=== PATIENT | male | born 1935 ===

== ENCOUNTER 2017-11-13 10:41 | Inpatient (IN) | payer MEDICARE ==
--- NOTE | 2017-11-13 11:00 | ED PDOC ---
Arrival/HPI - General Chief Complaint: High Blood Sugar Time Seen by Provider: 11/13/17 10:44 Historian: Patient, EMS - History of Present Illness Narrative History of Present Illness (Text): 11/13/17 10:57 81 year old male, pmh including htn/hld/dm/osteomylitis (Picc line with IV antibiotic routinely)hyperthyroidism/gastritis/anemia, nkda, biba complaining of hyperglycemia and hypotensive? x 1 hour. As per EMS and the [facility], pt. was having breakfast this morning, suddenly have the urge to go to the bathroom and had a bowel movement which he stood up and feeling dizziness and noted to be hypotensive, FS checked on the scene around 300s and BP at the [facility] around 80/60, ambulanced arrive and the BP within normal limit. Pt. is here at the Emergency room with no medical complaints except frontal headache which he stated that he has no head/neck/back/chest/abdomen/extremity injuries. Past Medical History - Provider Review Nursing Documentation Reviewed: Yes - Cardiac Hx Hypertension: Yes Hx Peripheral Vascular Disease: Yes - Neurological Hx Alzheimer's Disease: Yes Other/Comment: Weakness - Endocrine/Metabolic Hx Diabetes Mellitus Type 2: Yes - Integumentary Other/Comment: Right heel osteomylitis - Musculoskeletal/Rheumatological Other/Comment: Unsteady gait - Gastrointestinal Hx Gastroesophageal Reflux: Yes - Psychiatric Hx Substance Use: No Family/Social History - Physician Review Nursing Documentation Reviewed: Yes Family/Social History: Unknown Family HX Smoking Status: Never Smoked Hx Alcohol Use: No Hx Substance Use: No Allergies/Home Meds Allergies/Adverse Reactions: Allergies No Known Allergies Allergy (Verified 11/13/17 10:51) Home Medications: Home Meds Medication Instructions Recorded Confirmed Ascorbic Acid [Vitamin C 500 mg 500 mg PO BID 11/13/17 11/13/17 Tab] Aspirin [Ecotrin] 81 mg PO DAILY 11/13/17 11/13/17 Atorvastatin [Lipitor] 10 mg PO DAILY 11/13/17 11/13/17 Donepezil [Aricept] 10 mg PO DAILY 11/13/17 11/13/17 Famotidine [Pepcid] 20 mg PO HS 11/13/17 11/13/17 Gabapentin [Neurontin] 300 mg PO BID 11/13/17 11/13/17 Insulin Lispro [Admelog] 1 unit SC AC 11/13/17 11/13/17 Methimazole [Methimazole] 10 mg PO BID 11/13/17 11/13/17 Multivitamin [Multiple Vitamins] 1 tab PO DAILY 11/13/17 11/13/17 Ticagrelor [Brilinta] 90 mg PO DAILY 11/13/17 11/13/17 Review of Systems - Review of Systems Constitutional: absent: Fatigue, Fevers Eyes: absent: Vision Changes ENT: absent: Hearing Changes Respiratory: absent: SOB, Cough Cardiovascular: absent: Chest Pain Gastrointestinal: absent: Abdominal Pain, Nausea, Vomiting Neurological: Headache. absent: Dizziness, Focal Weakness, Gait Changes Psychiatric: absent: Anxiety, Depression, Suicidal Ideation Physical Exam Vital Signs Reviewed: Yes Vital Signs Temp Pulse Resp BP Pulse Ox 11/13/17 13:37 98 F 88 18 126/78 99 11/13/17 12:43 88 18 123/80 100 11/13/17 10:43 98.9 F 78 18 109/47 L 97 Temperature: Afebrile Blood Pressure: Hypotensive Pulse: Regular Respiratory Rate: Normal Appearance: Positive for: Well-Appearing, Non-Toxic, Comfortable Pain Distress: None Mental Status: Positive for: Alert and Oriented X 3 - Systems Exam Head: Present: Atraumatic, Normocephalic. No: Tenderness, Contusion, Swelling, Ecchymosis, Abrasion, Laceration, Other Pupils: Present: PERRL Extroacular Muscles: Present: EOMI Conjunctiva: Present: Normal Ears: Present: NORMAL TM, Normal Canal. No: Erythema Mouth: Present: Moist Mucous Membranes Pharnyx: Present: Normal. No: ERYTHEMA, EXUDATE, TONSILS ENLARGED Nose (External): Present: Atraumatic. No: Abrasion, Contusion, Laceration Nose (Internal): Present: Normal Inspection, No Active Bleeding. No: Rhinorrhea , Septal Hematoma, Epistaxis Neck: Present: Normal Range of Motion, Trachea Midline. No: Meningeal Signs, MIDLINE TENDERNESS, Paraspinal Tenderness, Lymphadenopathy Respiratory/Chest: Present: Clear to Auscultation, Good Air Exchange. No: Respiratory Distress, Accessory Muscle Use Cardiovascular: Present: Regular Rate and Rhythm, Normal S1, S2. No: Murmurs Abdomen: Present: Normal Bowel Sounds. No: Tenderness, Distention, Peritoneal Signs, Rebound, Guarding Rectal: Present: Melena, Normal Rectal Tone, Other (+Guaiac. Female Glass Tinter: Emergency room RN Patricia). No: Occult Blood, Rectal Tenderness, Gross Blood , Hemorrhoids, Fissures, Nodule/Mass/Lesions Back: Present: Normal Inspection. No: CVA Tenderness, Midline Tenderness, Paraspinal Tenderness, Pain with Leg Raise, Decubitus Ulcer Upper Extremity: Present: Normal Inspection, Normal ROM, NORMAL PULSES, Neurovascularly Intact. No: Cyanosis, Edema, Tenderness, Swelling, Deformity Lower Extremity: Present: Normal Inspection, NORMAL PULSES, Normal ROM, Neurovascularly Intact, Capillary Refill < 2 s, Other (Rt. heel: visible approx. [id number] healing ulcer noted with no cellulitis noted and no streaking noted, +DPPT pulses, FROM without limitation, sensation intact, motor 5/5, + DPPT pulses, capillary refill< 2 seconds. ). No: Edema, Tenderness, Swelling, Deformity Neurological: Present: GCS=15, CN II-XII Intact, Speech Normal, Motor Func Grossly Intact, Gait Normal, Memory Normal, Other (no drift, NIHSS is zero, no focal neurological deficits. ) Skin: Present: Warm, Dry, Normal Color. No: Rashes Psychiatric: Present: Alert, Oriented x 3, Normal Insight, Normal Concentration Medical Decision Making ED Course and Treatment: 11/13/17 11:02 -Labs/ua -CT head -Chest X-Ray -EKG -IVF/tylenol -Orthostatic BP -security monitor. 11/13/17 12:48 -EKG: NSR @ 89 BPM, no ST elevation or depression, no T wave inversion. -CT head: Age-appropriate involutional change. No intracranial mass, hemorrhage or evidence of acute infarct. -Chest xray: no active disease -Orthostatic v/s -Labs show no acute findings except hgb 7.6 with no previous comparison (Guiac is positive, 2 units of PRBC ordered), BUN 36 with no previous comparison (IVF ordered) -Urinalysis ordered and pending result -Magnesium level within normal limit -Pt. has GI bleed, likely causing him to have an episode of hypotensive but BP been normalized in the Emergency room, will admit him for GI bleed, symptomatic anemia, blood transfusion consent obtained. -All labs/radiology results discussed with the patient and , agreed on the treatment and admission plan, pt. had recent blood transfusion less than 3 months ago as per in [facility] [place]. -IV protonix 40/IV 500c bolus and fall risk ordered, npo. -Dr. Nix paged. 11/13/17 12:57 -I spoke to DR. Samuel Nix about this case/labs/radiology results, request to have Dr. Levine for the routine consult and admit to his service to telemetry floor and he would follow up on any pending labs/radiology result and consults. 11/13/17 13:09 -Dr. Nix came to evaluate the patient, he will put in the admission order. . 11/13/17 14:04 -Dr. Cortez's GI Fellow, Dr. Chinchilla, came to evaluated the patient and reviewed labs/radiology results and discussed with Dr. Cortez, request ICU admission. I spoke to the ICU attending Dr. Deal, discussed about the labs/ radiology result and he would evaluate the patient on the tele floor to see if the patient is ICU candidate. He will move the patient to the ICU if the patient is an ICU candidate. Pt. is hemodynamically stable in the Emergency room, consult ordered for ICU attending Dr. Deal. 11/13/17 15:30 -I spoke to Dr. Nix in person, awared of the ICU consult and stated that he just spoke to the ICU Dr. Deal that the patient is not an ICU candidate. Dr. Nix will speak to the attending DR. Cortez and he will follow up the lab. - Critical Care Critical Care Minutes: 45 minutes Critical Care Time: Unstable Narrative Critical Care (Text): 11/13/17 12:53 GI bleed, episode of hypotensive at [facility], hgb 7.5 and needs 2 units of - Lab Interpretations Lab Results: 11/13/17 11:56 11/13/17 11:56 Lab Results 11/13/17 11:56: Sodium 139, Potassium 4.8, Chloride 103, Carbon Dioxide 29, Anion Gap 12, BUN 36 H, Creatinine 1.0, Est GFR ( Amer) > 60, Est GFR ( Non-Af Amer) > 60, Random Glucose 244 H, Calcium 9.1, Magnesium 1.9, Total Bilirubin 0.1 L, AST 38, ALT 28, Alkaline Phosphatase 79, Total Protein 6.6, Albumin 3.2, Globulin 3.4, Albumin/Globulin Ratio 0.9 L 11/13/17 11:56: WBC 8.4, RBC 2.98 L, Hgb 7.6 L, Hct 24.1 L, MCV 80.9, MCH 25.5, MCHC 31.5, RDW 14.5, Plt Count 530 H, MPV 8.3, Gran % 80.0 H, Lymph % (Auto) 15.0 L, St[place]ard % (Auto) 4.3, Eos % (Auto) 0.6 L, Baso % (Auto) 0.1, Gran # 6.70 H , Lymph # (Auto) 1.3, Stoddard # (Auto) 0.4, Eos # (Auto) 0.1, Baso # (Auto) 0.01 11/13/17 10:57: POC Glucose (mg/dL) 262 H I have reviewed the lab results: Yes - RAD Interpretation Radiology Orders: 11/13/17 10:56 HEAD W/O CONTRAST [CT] Stat CHEST PORTABLE [RAD] Stat CT head: PROCEDURE: CT HEAD WITHOUT CONTRAST. HISTORY: headache COMPARISON: None available. TECHNIQUE: Axial computed tomography images were obtained through the head/brain without intravenous contrast. Radiation dose: Total exam DLP = 837.26 mGy-cm. This CT exam was performed using one or more of the following dose reduction techniques: Automated exposure control, adjustment of the mA and/or kV according to patient size, and/or use of iterative reconstruction technique. FINDINGS: HEMORRHAGE: No intracranial hemorrhage. BRAIN: No mass effect or edema. Mild age-appropriate atrophy. Moderate chronic periventricular white matter lucency consistent with microvascular ischemic change. No evidence of acute infarct. VENTRICLES: Unremarkable. No hydrocephalus. CALVARIUM: Unremarkable. PARANASAL SINUSES: Unremarkable as visualized. No significant inflammatory changes. MASTOID AIR CELLS: Unremarkable as visualized. No inflammatory changes. OTHER FINDINGS: None. IMPRESSION: Age-appropriate involutional change. No intracranial mass, hemorrhage or evidence of acute infarct. -- Chest xray: . HISTORY: medical clearance COMPARISON: No prior. FINDINGS: LUNGS: No active pulmonary disease. PLEURA: No significant pleural effusion identified, no pneumothorax apparent. CARDIOVASCULAR: Normal heart size. Right PICC catheter terminates in the region of the superior vena cava. No congestive change. OSSEOUS STRUCTURES: No significant abnormalities. VISUALIZED UPPER ABDOMEN: Normal. OTHER FINDINGS: None. IMPRESSION: No active disease. Tubing Supervisor: Radiologist - EKG Interpretation EKG Interpretation (Text): 11/13/17 12:33 EKG: NSR @ 89 BPM, no ST elevation or depression, no T wave inversion. Interpreted by ED Physician: Yes Comparison: No previous EKG avail. - Medication Orders Current Medication Orders: Ascorbic Acid (Vitamin C 500 Mg Tab) 500 mg PO BID TRISTA Atorvastatin Calcium (Lipitor) 10 mg PO DAILY TRISTA Donepezil HCl (Aricept) 10 mg PO DAILY TRISTA Pantoprazole Sodium (Protonix 40mg Ivpb) 40 mg in 100 mls @ 20 mls/hr IVPB .Q5H TRISTA Last Admin: 11/13/17 14:26 Dose: 20 mls/hr eMAR Start Stop Document 11/13/17 14:26 JZA (Rec: 11/13/17 14:26 JZA [id number]) Intravenous Solution Start Date 11/13/17 Start Time 14:26 Sodium Chloride (Sodium Chloride 0.9%) 1,000 mls @ 75 mls/hr IV .[id number] TRISTA Last Admin: 11/13/17 14:45 Dose: 75 mls/hr eMAR Start Stop Document 11/13/17 14:45 JZA (Rec: 11/13/17 14:45 JZA [id number]) Intravenous Solution Start Date 11/13/17 Start Time 14:45 Piperacillin Sod/Tazobactam Sod (Zosyn 3.375 In Ns 100ml) 100 mls @ 100 mls/hr IVPB Q12H TRISTA PRN Reason: Protocol Stop: 11/14/17 04:59 Last Admin: 11/13/17 15:44 Dose: 100 mls/hr eMAR Start Stop Document 11/13/17 15:44 JZA (Rec: 11/13/17 15:44 JZA [id number]) Intravenous Solution Start Date 11/13/17 Start Time 15:44 End Date 11/13/17 End time 16:44 Total Infusion Time 60 Insulin Human Regular (Humulin R Med) 0 units SC ACHS TRISTA PRN Reason: Protocol Methimazole (Tapazole) 10 mg PO BID TRISTA Multivitamins (Thera Tab) 1 tab PO DAILY TRISTA Discontinued Medications Acetaminophen (Tylenol 325mg Tab) 650 mg PO STAT STA Stop: 11/13/17 10:59 Last Admin: 11/13/17 11:48 Dose: 650 mg MAR Pain/Vitals Document 11/13/17 11:48 [facility] (Rec: 11/13/17 11:49 [facility] [id number]) Pain Reassessment Is This A Pain ReAssessment? No Re-Assess: MAR Pain/Vitals Document 11/13/17 12:48 [facility] (Rec: 11/13/17 13:02 [facility] [id number]) Pain Reassessment Is This A Pain ReAssessment? Yes Presence of Pain Presence of Pain No Sodium Chloride (Sodium Chloride 0.9%) 1,000 mls @ 100 mls/hr IV .Q10H TRISTA Last Admin: 11/13/17 13:04 Dose: 100 mls/hr eMAR Start Stop Document 11/13/17 13:04 [employer] (Rec: 11/13/17 13:05 [facility] [id number]) Intravenous Solution Start Date 11/13/17 Start Time 13:04 End Date 11/13/17 End time 14:04 Total Infusion Time 60 Sodium Chloride (Sodium Chloride 0.9%) 500 mls @ 999 mls/hr IV .Q31M STA Stop: 11/13/17 13:26 Last Admin: 11/13/17 13:30 Dose: 999 mls/hr eMAR Start Stop Document 11/13/17 13:30 [facility] (Rec: 11/13/17 14:10 [facility] [id number]) Intravenous Solution Start Date 11/13/17 Start Time 13:30 End Date 11/13/17 End time 14:00 Total Infusion Time 30 Pantoprazole Sodium (Protonix Inj) 40 mg IVP STAT STA Stop: 11/13/17 12:53 Last Admin: 11/13/17 13:03 Dose: 40 mg IVP Administration Document 11/13/17 13:03 [facility] (Rec: 11/13/17 13:03 [facility] [id number]) Charges for Administration # of IVP Administrations 1 - 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 Disposition/Present on Arrival - Present on Arrival Any Indicators Present on Arrival: No History of DVT/PE: No History of Uncontrolled Diabetes: Yes Urinary Catheter: No History of Decub. Ulcer: No History Surgical Site Infection Following: None - Disposition Have Diagnosis and Disposition been Completed?: Yes Diagnosis: GI bleed, Symptomatic anemia, Dehydration Disposition: HOSPITALIZED Disposition Time: 12:51 Patient Plan: Admission, Telemetry Patient Problems: Current Active Problems Problem Status Onset GI bleed Acute Symptomatic anemia Acute Dehydration Acute Condition: GUARDED
--- NOTE | 2017-11-13 11:35 | CT ---
Date of service: 11/13/2017 PROCEDURE: CT HEAD WITHOUT CONTRAST. HISTORY: headache COMPARISON: None available. TECHNIQUE: Axial computed tomography images were obtained through the head/brain without intravenous contrast. Radiation dose: Total exam DLP = 837.26 mGy-cm. This CT exam was performed using one or more of the following dose reduction techniques: Automated exposure control, adjustment of the mA and/or kV according to patient size, and/or use of iterative reconstruction technique. FINDINGS: HEMORRHAGE: No intracranial hemorrhage. BRAIN: No mass effect or edema. Mild age-appropriate atrophy. Moderate chronic periventricular white matter lucency consistent with microvascular ischemic change. No evidence of acute infarct. VENTRICLES: Unremarkable. No hydrocephalus. CALVARIUM: Unremarkable. PARANASAL SINUSES: Unremarkable as visualized. No significant inflammatory changes. MASTOID AIR CELLS: Unremarkable as visualized. No inflammatory changes. OTHER FINDINGS: None. IMPRESSION: Age-appropriate involutional change. No intracranial mass, hemorrhage or evidence of acute infarct.
[2017-11-13] MEDS: Sodium Chloride 0.9% 1,000 ML IV SCH ×4 (11:49→14:45)
--- NOTE | 2017-11-13 11:56 | RAD ---
Date of service: 11/13/2017 HISTORY: medical clearance COMPARISON: No prior. FINDINGS: LUNGS: No active pulmonary disease. PLEURA: No significant pleural effusion identified, no pneumothorax apparent. CARDIOVASCULAR: Normal heart size. Right PICC catheter terminates in the region of the superior vena cava. No congestive change. OSSEOUS STRUCTURES: No significant abnormalities. VISUALIZED UPPER ABDOMEN: Normal. OTHER FINDINGS: None. IMPRESSION: No active disease.
[2017-11-13 12:05] LABS: BASO # 0.01 K/mm3 (0.0-2.0); BASO % 0.1 % (0.0-3.0); EOS # 0.1 (0.0-0.7); EOS % 0.6 % (1.5-5.0); GRAN # 6.7 (1.4-6.5); HEMOGLOBIN 7.6 g/dL (14.0-18.0); LYMPH # 1.3 (1.2-3.4); MEAN CELL VOLUME 80.9 fl (80.0-105.0); MEAN CORPUSCULAR HEMOGLOBIN 25.5 pg (25.0-35.0); MEAN CORPUSCULAR HGB CONC 31.5 g/dl (31.0-37.0); MEAN PLATELET VOLUME 8.3 fl (7.0-11.0); MONO # 0.4 (0.1-0.6); MONO % 4.3 % (1.0-6.0); RBC 2.98 10^6/uL (3.5-6.1); RED CELL DISTRIBUTION WIDTH 14.5 % (11.5-14.5); WHITE BLOOD COUNT 8.4 10^3/ul (4.5-11.0)
[2017-11-13 12:35] LABS: ALB/GLOB RATIO 0.9 (1.1-1.8); ALBUMIN 3.2 g/dL (3.0-4.8); ALT/SGPT 28 U/L (7-56); AST/SGOT 38 U/L (17-59); BLOOD UREA NITROGEN 36 mg/dL (7-21); CALCIUM 9.1 mg/dL (8.4-10.5); GFR NON-AFRICAN AMERICAN > 60
[2017-11-13] MEDS ORDERED: Sodium Chloride 0.9% 500 ML IV STA (12:56)
[2017-11-13 13:47] LABS: URINE BILIRUBIN NEGATIVE (NEGATIVE); URINE BLOOD NEGATIVE (NEGATIVE); URINE GLUCOSE (UA) 500 mg/dL (NEGATIVE); URINE LEUKOCYTE ESTERASE NEGATIVE Leu/uL (NEGATIVE); URINE PROTEIN NEGATIVE mg/dL (<30 mg/dL)
[2017-11-13 14:08] LABS: URINE APPEARANCE CLEAR (CLEAR); URINE COLOR YELLOW (YELLOW)
--- NOTE | 2017-11-13 14:18 | CP.PCM.CON ---
<Amor James - Last Filed: 11/13/17 14:19> History of Present Illness - History of Present Illness History of Present Illness: GI Fellow PGY4, consult note Jason Cunningham is a 81M with history of PVD, osteomyelitis, DM anemia presenting with dizziness, melena. [place] [facility] [place] but possible osteomyelitis and found to have PVD on aspirin and ticagrellor. 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 They came from [facility] without any paperwork. Apparently, patient was hypotensive at rehab facility and had large BM, reported as melena. Denies vomiting, syncope, previous GI bleed. He had EGD and colonoscopy 6 years ago, but indication and findings are unclear. He received 2 units of blood [place] [facility] [place] again unclear reason. PMHx - as above PSHx - none SocHx - At rehab facility, has some hx of dementia. 12pt ROS completed and neg except for above. Past Patient History - Past Social History Smoking Status: Never Smoked - CARDIAC Hx Hypertension: Yes Hx Peripheral Vascular Disease: Yes - NEUROLOGICAL Hx Alzheimer's Disease: Yes Other/Comment: Weakness - ENDOCRINE/METABOLIC Hx Diabetes Mellitus Type 2: Yes - INTEGUMENTARY Other/Comment: Right heel osteomylitis - MUSCULOSKELETAL/RHEUMATOLOGICAL Other/Comment: Unsteady gait - GASTROINTESTINAL Hx Gastroesophageal Reflux: Yes - PSYCHIATRIC Hx Substance Use: No Meds Allergies/Adverse Reactions: Allergies Allergy/AdvReac Type Severity Reaction Status Date / Time No Known Allergies Allergy Verified 11/13/17 10:51 - Medications Medications: Current Medications Sodium Chloride (Sodium Chloride 0.9%) 1,000 mls @ 100 mls/hr IV .Q10H [facility] Last Admin: 11/13/17 13:04 Dose: 100 mls/hr Pantoprazole Sodium (Protonix 40mg Ivpb) 40 mg in 100 mls @ 20 mls/hr IVPB .Q5H [facility] Physical Exam - Constitutional Appears: Non-toxic, No Acute Distress, Chronically Ill - Head Exam Head Exam: NORMAL INSPECTION - Eye Exam Eye Exam: EOMI, Normal appearance - ENT Exam ENT Exam: Mucous Membranes Dry - Respiratory Exam Respiratory Exam: Clear to Auscultation Bilateral, NORMAL BREATHING PATTERN - Cardiovascular Exam Cardiovascular Exam: Tachycardia, REGULAR RHYTHM, +S1, +S2 - GI/Abdominal Exam GI & Abdominal Exam: Normal Bowel Sounds, Soft. absent: Organomegaly, Tenderness - Rectal Exam Rectal Exam: Black Stool - Extremities Exam Extremities exam: Negative for: normal inspection, pedal edema Additional comments: Right foot bandaged. - Neurological Exam Neurological exam: Alert, CN II-XII Intact - Psychiatric Exam Psychiatric exam: Normal Affect, Normal Mood - Skin Skin Exam: Dry, Normal Color Results - Vital Signs Recent Vital Signs: Last Vital Signs Temp 98 F 11/13/17 13:37 Pulse 88 11/13/17 13:37 Resp 18 11/13/17 13:37 BP 126/78 11/13/17 13:37 Pulse Ox 99 11/13/17 13:37 - Labs Result Diagrams: 11/13/17 11:56 11/13/17 11:56 Labs: Laboratory Results - last 24 hr 11/13/17 11/13/17 13:42 13:42 Urine Color Yellow Urine Appearance Clear Urine pH 6.0 Ur Specific [place] 1.010 Urine Protein Negative Urine Glucose (UA) 500 H Urine Ketones Negative Urine Blood Negative Urine Nitrate Negative Urine Bilirubin Negative Urine Urobilinogen 1.0 H Ur Leukocyte Esterase Negative Crossmatch See Detail BBK History Checked No verified bt Assessment & Plan - Assessment and Plan (Free Text) Assessment: 81M with unclear medical history on DAPT and ?osteomyelitis presenting with hypotension and melena. #Acute blood loss anemia due to GI bleed #Likely PVD #Likely osteomyelitis - had PICC line on presentation, daily Abx. #T2DM #?Hyperthyroidism - on Methimazole PLAN: -Admit to ICU -Supportive care: 2 large bore IVs, conservative fluid management. Monitor I/Os , fluid status carefully. -Transfuse 2u pRBCs stat -Transfuse 1u plts stat for recent DAPT -Pantoprazole Drip -NPO -Avoid NSAIDs, hold DAPT -[place] [facility] [place] -Recommend cardio consult -Plan for EGD Wednesday 9AM - Date & Time Date: 11/13/17 Time: 14:29 <Reyna Cortez - Last Filed: 11/14/17 10:21> Meds - Medications Medications: Current Medications Ascorbic Acid (Vitamin C 500 Mg Tab) 500 mg PO BID [facility] Last Admin: 11/13/17 17:00 Dose: Not Given Atorvastatin Calcium (Lipitor) 10 mg PO DAILY [facility] Donepezil HCl (Aricept) 10 mg PO DAILY [facility] Pantoprazole Sodium (Protonix 40mg Ivpb) 40 mg in 100 mls @ 20 mls/hr IVPB .Q5H [facility] Last Admin: 11/14/17 09:14 Dose: 20 mls/hr Sodium Chloride (Sodium Chloride 0.9%) 1,000 mls @ 75 mls/hr IV .[id number] [facility] Last Admin: 11/13/17 14:45 Dose: 75 mls/hr Meropenem (Merrem Iv 1 Gm Premix) 50 mls @ 100 mls/hr IVPB Q8 [facility] PRN Reason: Protocol Stop: 11/22/17 18:59 Last Admin: 11/14/17 05:53 Dose: 100 mls/hr Vancomycin HCl (Vancomycin 1gm) 1 gm in 250 mls @ 167 mls/hr IVPB Q12H [facility] PRN Reason: Protocol Stop: 11/22/17 10:01 Last Admin: 11/14/17 09:14 Dose: 167 mls/hr Insulin Human Regular (Humulin R Med) 0 units SC ACHS [facility] PRN Reason: Protocol Last Admin: 11/14/17 07:30 Dose: Not Given Methimazole (Tapazole) 10 mg PO BID [facility] Last Admin: 11/13/17 17:00 Dose: Not Given Multivitamins (Thera Tab) 1 tab PO DAILY [facility] Results - Vital Signs Recent Vital Signs: Last Vital Signs Temp 98.6 F 11/14/17 06:00 Pulse 96 H 11/14/17 06:00 Resp 19 11/14/17 06:00 BP 158/72 H 11/14/17 06:00 Pulse Ox 98 11/14/17 06:00 - Labs Result Diagrams: 11/14/17 06:15 11/14/17 06:15 Labs: Laboratory Results - last 24 hr 11/13/17 11/13/17 11/13/17 13:42 13:42 14:10 WBC RBC Hgb Hct MCV MCH MCHC RDW Plt Count MPV PT 13.1 H INR 1.15 APTT 27.0 Sodium Potassium Chloride Carbon Dioxide Anion Gap BUN Creatinine Est GFR ( Amer) Est GFR (Non-Af Amer) POC Glucose (mg/dL) Random Glucose Calcium Total Bilirubin AST ALT Alkaline Phosphatase Total Protein Albumin Globulin Albumin/Globulin Ratio Urine Color Yellow Urine Appearance Clear Urine pH 6.0 Ur Specific [place] 1.010 Urine Protein Negative Urine Glucose (UA) 500 H Urine Ketones Negative Urine Blood Negative Urine Nitrate Negative Urine Bilirubin Negative Urine Urobilinogen 1.0 H Ur Leukocyte Esterase Negative Blood Type A POSITIVE Blood Type Confirm Antibody Screen Negative Crossmatch See Detail BBK History Checked No verified bt 11/13/17 11/13/17 11/13/17 14:45 16:10 21:19 WBC RBC Hgb Hct MCV MCH MCHC RDW Plt Count MPV PT INR APTT Sodium Potassium Chloride Carbon Dioxide Anion Gap BUN Creatinine Est GFR ( Amer) Est GFR (Non-Af Amer) POC Glucose (mg/dL) 223 H 188 H Random Glucose Calcium Total Bilirubin AST ALT Alkaline Phosphatase Total Protein Albumin Globulin Albumin/Globulin Ratio Urine Color Urine Appearance Urine pH Ur Specific [place] Urine Protein Urine Glucose (UA) Urine Ketones Urine Blood Urine Nitrate Urine Bilirubin Urine Urobilinogen Ur Leukocyte Esterase Blood Type Blood Type Confirm A POSITIVE Antibody Screen Crossmatch BBK History Checked 11/14/17 11/14/17 11/14/17 02:05 06:15 06:15 WBC 6.7 D RBC 3.48 L Hgb 9.4 L Hct 28.2 L MCV 81.0 MCH 27.0 MCHC 33.3 RDW 15.0 H Plt Count 431 MPV 8.5 PT INR APTT Sodium 141 Potassium 4.4 Chloride 108 H Carbon Dioxide 26 Anion Gap 11 BUN 29 H Creatinine 0.9 Est GFR ( Amer) > 60 Est GFR (Non-Af Amer) > 60 POC Glucose (mg/dL) Random Glucose 199 H Calcium 8.5 Total Bilirubin 0.9 AST 18 ALT 24 Alkaline Phosphatase 76 Total Protein 6.1 Albumin 3.0 Globulin 3.1 Albumin/Globulin Ratio 1.0 L Urine Color Yellow Urine Appearance Clear Urine pH 6.0 Ur Specific [place] 1.015 Urine Protein Negative Urine Glucose (UA) Negative Urine Ketones Negative Urine Blood Negative Urine Nitrate Negative Urine Bilirubin Negative Urine Urobilinogen 0.2 Ur Leukocyte Esterase Negative Blood Type Blood Type Confirm Antibody Screen Crossmatch BBK History Checked Attending/Attestation - Attestation I have personally seen and examined this patient.: Yes I have fully participated in the care of the patient.: Yes I have reviewed all pertinent clinical information: Yes Notes (Text): 11/14/17 10:16 This is a 81 yr old M with unclear medical history on DAPT and ?osteomyelitis presenting with hypotension and melena on ticagrellor and ASA at home. Unknow history when cardiac stents were placed. No old records. Rectal with melena. Will give platelets as due to DAP the platelets are dysfunctial potentiating GI bleed. 2 units PRBC to be infused with PPi drip with bolus. Admit to ICU with 2 large bore IV with endoscopy planned for wednesday morning after resuscitation. GI fellow discussed with the nursing front line supervisor
[2017-11-13] MEDS: Pantoprazole 40mg/100mL NS 40 MG/100 ML BAG IVPB SCH ×3 (14:26→23:00)
--- NOTE | 2017-11-13 14:37 | CP.PCM.CON ---
History of Present Illness - History of Present Illness History of Present Illness: MICU CONSULT NOTE HPI: Patient is 81yo male with PMHx of HTN, HLD, DM, male, osteomylitis on IV abx w/ PICC, hyperthyroidism, anemia, unknown baseline HH, presents from [place] with dizziness, and melena x 1 day. History obtained from the , Idania, who is at bedside, with board runner Mateo translating. Pt's notes up until yesterday patient has ahd normal BMs, denies N/VD/D, fever, chills, CP, SOB. Today patient had dark stools, and an episode of dizziness, with hypotensive episode at [facility]. Upon arrival to the ER, SBP ranging 109-136, HR 90s, patient comfortable in NAD. HH today 7.6, to receive 2u PRBC. PMHx HTN, HLD, DM, male, osteomylitis on IV abx w/PICC, hyperthyroidism, anemia , unknown baseline HH PSHx NONE Meds as per EMR Social denies smoking, etoh, drug use FHx ID Review of Systems - Review of Systems Review of Systems: as per HPI Past Patient History - Past Social History Smoking Status: Never Smoked - CARDIAC Hx Hypertension: Yes Hx Peripheral Vascular Disease: Yes - NEUROLOGICAL Hx Alzheimer's Disease: Yes Other/Comment: Weakness - ENDOCRINE/METABOLIC Hx Diabetes Mellitus Type 2: Yes - INTEGUMENTARY Other/Comment: Right heel osteomylitis - MUSCULOSKELETAL/RHEUMATOLOGICAL Other/Comment: Unsteady gait - GASTROINTESTINAL Hx Gastroesophageal Reflux: Yes - PSYCHIATRIC Hx Substance Use: No Meds Allergies/Adverse Reactions: Allergies Allergy/AdvReac Type Severity Reaction Status Date / Time No Known Allergies Allergy Verified 11/13/17 10:51 - Medications Medications: Current Medications Ascorbic Acid (Vitamin C 500 Mg Tab) 500 mg PO BID [facility] Aspirin (Ecotrin) 81 mg PO DAILY [facility] Atorvastatin Calcium (Lipitor) 10 mg PO DAILY [facility] Donepezil HCl (Aricept) 10 mg PO DAILY [facility] Famotidine (Pepcid) 20 mg PO HS [facility] Sodium Chloride (Sodium Chloride 0.9%) 1,000 mls @ 100 mls/hr IV .Q10H [facility] Last Admin: 11/13/17 14:22 Dose: 100 mls/hr Pantoprazole Sodium (Protonix 40mg Ivpb) 40 mg in 100 mls @ 20 mls/hr IVPB .Q5H [facility] Last Admin: 11/13/17 14:26 Dose: 20 mls/hr Insulin Human Regular (Humulin R Med) 0 units SC ACHS [facility] PRN Reason: Protocol Methimazole (Tapazole) 10 mg PO BID [facility] Multivitamins (Thera Tab) 1 tab PO DAILY [facility] Ticagrelor (Brilinta) 90 mg PO DAILY [facility] Physical Exam - Constitutional Appears: Well, Non-toxic, No Acute Distress - Head Exam Head Exam: NORMAL INSPECTION - Eye Exam Eye Exam: Normal appearance - ENT Exam ENT Exam: Mucous Membranes Moist - Neck Exam Neck exam: Positive for: Full Rom - Respiratory Exam Respiratory Exam: Clear to Auscultation Bilateral, NORMAL BREATHING PATTERN - Cardiovascular Exam Cardiovascular Exam: REGULAR RHYTHM, +S1, +S2 - GI/Abdominal Exam GI & Abdominal Exam: Normal Bowel Sounds, Soft - Extremities Exam Extremities exam: Positive for: normal inspection - Back Exam Back exam: NORMAL INSPECTION - Neurological Exam Neurological exam: Alert, Oriented x3 - Skin Skin Exam: Warm Results - Vital Signs Recent Vital Signs: Last Vital Signs Temp 98 F 11/13/17 13:37 Pulse 88 11/13/17 13:37 Resp 18 11/13/17 13:37 BP 126/78 11/13/17 13:37 Pulse Ox 99 11/13/17 13:37 - Labs Result Diagrams: 11/13/17 11:56 11/13/17 11:56 Labs: Laboratory Results - last 24 hr 11/13/17 11/13/17 13:42 13:42 Urine Color Yellow Urine Appearance Clear Urine pH 6.0 Ur Specific [place] 1.010 Urine Protein Negative Urine Glucose (UA) 500 H Urine Ketones Negative Urine Blood Negative Urine Nitrate Negative Urine Bilirubin Negative Urine Urobilinogen 1.0 H Ur Leukocyte Esterase Negative Crossmatch See Detail BBK History Checked No verified bt Assessment & Plan - Assessment and Plan (Free Text) Assessment: 81yo male with PMHx HTN, HLD, DM, male, osteomylitis on IV abx w/PICC, hyperthyroidism, anemia, unknown baseline HH, admitted with anemia, GIB Melena/GIB, guiac positive Anemia HTN Ostemyelitis Hyperthyroidism DM - currently afebrile, BP stable, current BP 136/78, HR 90, sat 100% on room air , comfortable in NAD, benign abd exam - labs, imaging, chart reviewed, HH 7.6 (baseline ~9 as per PMD) to receive 2u PRBC Recommend: - transfuse 2u PRBC - Hold BP meds - Hold Brillinta, ASA - IVF - GI eval - PPI drip - NPO - DVT ppx, SCDs - Monitor on telemetry; case and findings were discussed with PMD, Dr Nix
[2017-11-13 15:00] LABS: INR 1.15; PROTHROMBIN TIME 13.1 SECONDS (9.4-12.5)
--- NOTE | 2017-11-13 15:54 | CARD ---
APPROVED REPORT Date of service: 11/13/2017 EKG Measurement Heart [id number] <Conclusion> Normal sinus rhythm Normal ECG
[2017-11-13] MEDS ORDERED: Piperacillin/Tazobact 3.375 gm 100 ML IVPB SCH (16:00)
[2017-11-13] MEDS: Insulin Reg-MEDIUM-Coverage SC SCH ×2 (16:58→21:58)
[2017-11-13 18:17] VITALS: BMI 21.6
[2017-11-13] MEDS ORDERED: Vancomycin 1gm in NS 250ml 1 GM/250 ML BAG IVPB SCH (19:00)
[2017-11-13] MEDS: Meropenem IV 1 gm in NS 50 ML IVPB SCH ×2 (21:54→21:55)
[2017-11-14] MEDS: Pantoprazole 40mg/100mL NS 40 MG/100 ML BAG IVPB SCH ×5 (04:15→21:27)
[2017-11-14] MEDS: Meropenem IV 1 gm in NS 50 ML IVPB SCH ×3 (05:53→21:25)
--- NOTE | 2017-11-14 06:12 | HP ---
HISTORY OF PRESENT ILLNESS: I know Jason very well from [facility], who was there for IV antibiotics for osteomyelitis of the foot and this morning, I had a call from the skilled nursing nurse that he is very lightheaded and not feeling well. He is an 81-year-old male comes to the emergency room with a lightheadedness, syncope, almost syncope episode, hypotensive, blood pressure in the 80s. He has got a past medical history that is including hypertension, high cholesterol, diabetes, osteomyelitis, PICC line with IV antibiotics, hypothyroidism, gastritis, anemia, hyperglycemia, hypotensive and when he went to the bathroom, he stood up, he had dizzy, almost fell, and he was hypotensive in the 80s. Blood sugar was in the 300s and they shift him to [facility] for hypertension. He is weak. PAST MEDICAL HISTORY: He has diabetes. He got a right heel osteomyelitis, on antibiotics; unsteady gait; reflux. FAMILY HISTORY: Unknown family history. SOCIAL HISTORY: Never smoked. No alcohol. No drugs. ALLERGIES: NO KNOWN DRUG ALLERGIES. I sent overall his medications except which antibiotic he is on. Vitamin C, Ecotrin, Lipitor, Aricept, Pepcid, Neurontin and Dilaudid, methimazole, multivitamins and Brilinta. His Brilinta is on hold. His aspirin is on hold for a possible endoscopy tomorrow. REVIEW OF SYSTEMS: He is very tired, fatigued, weak, lightheaded. No acute vision or hearing changes. No shortness of breath or cough. No chest pain or palpitation, abdominal pain, nausea, vomiting or constipation. He had a headache, dizzy, very weak. No anxiety, no depression, no suicidal ideation. PHYSICAL EXAMINATION: VITAL SIGNS: Temperature 98.9, 78 pulse, 18 respiratory rate, 109/47 blood pressure here with 97% O2 sat. He was hypertensive. GENERAL: He is well-appearing, nontoxic, comfortable at this time. He is alert and oriented x3. HEENT: Head is atraumatic, normocephalic. Extraocular muscles are intact. Pupils are equal and reactive to light and accommodation. Throat is moist. NECK: Supple. HEART: Regular rate. Normal S1, S2. LUNGS: Decreased breath sounds, clear to auscultation. NECK: Supple. ABDOMEN: Soft, nontender. Positive bowel sounds. No guarding or rebound. No CVA tenderness. RECTAL: There was melena, normal rectal tone. Positive guaiac. No CVA tenderness. No edema of the extremities. He does have a right heel osteomyelitis. He is on IV antibiotics for that. He has a 4 cm x 3 cm healing ulcer of the right heel. NEUROLOGIC: GCS is 15. Cranial nerves II-XII grossly intact. Speech is normal. He is alert and smiling, feels better. SKIN: Warm and dry except for the right heel. Alert and oriented x3. Thyroid at midline. No palpable appreciable lymphadenopathy. He had multiple tests done. The CAT scan of head was good. Chest x-ray was good. He has a urine, which is okay. Sodium 139, potassium 4.8, BUN 36, creatinine 1. GFR is greater than 60. Sugar is 244, I put him on coverage. Calcium 9.1, magnesium 1.9, total bili is 0.1, AST is 38, ALT is 28, alk phos 79, total protein 6.6, albumin is 3.2. White count is 8.4; hemoglobin is down to 7.6, which is new; hematocrit 24.1; platelets of 530. ASSESSMENT AND PLAN: He will have consults with Gastrointestinal, Infectious Disease and Cardiology and Gastrointestinal told me that they want to scope him tomorrow, so we are going to hold his aspirin and his Brilinta. He will be n.p.o. We are not going to feed him at this time. He is being transfused. He is here for anemia and gastrointestinal bleed. He has got symptomatic anemia, osteomyelitis of the right heel. Samuel Nix DO [facility]
[2017-11-14 06:52] LABS: HEMOGLOBIN 9.4 g/dL (14.0-18.0); MEAN CORPUSCULAR HGB CONC 33.3 g/dl (31.0-37.0); MEAN PLATELET VOLUME 8.5 fl (7.0-11.0); RBC 3.48 10^6/uL (3.5-6.1); WHITE BLOOD COUNT 6.7 10^3/ul (4.5-11.0)
[2017-11-14 07:01] LABS: URINE BILIRUBIN NEGATIVE (NEGATIVE); URINE BLOOD NEGATIVE (NEGATIVE); URINE GLUCOSE (UA) NEGATIVE (NEGATIVE); URINE LEUKOCYTE ESTERASE NEGATIVE Leu/uL (NEGATIVE); URINE PROTEIN NEGATIVE mg/dL (<30 mg/dL); URINE UROBILINOGEN 0.2 E.U./dL (<1 E.U./dL)
[2017-11-14 07:04] LABS: URINE APPEARANCE CLEAR (CLEAR); URINE COLOR YELLOW (YELLOW)
[2017-11-14 07:18] LABS: ALT/SGPT 24 U/L (7-56); AST/SGOT 18 U/L (17-59); BLOOD UREA NITROGEN 29 mg/dL (7-21); CALCIUM 8.5 mg/dL (8.4-10.5); GFR NON-AFRICAN AMERICAN > 60
[2017-11-14] MEDS: Insulin Reg-MEDIUM-Coverage SC SCH ×4 (07:30→21:57)
--- NOTE | 2017-11-14 07:50 | CP.PCM.PCO ---
Addendum Addendum: 11/14/17 07:42 Patient speaks Martiniquais only and has mild to moderate cognitive impairment and requires urgent EGD for symptomatic GI bleed. Regarding the consent, I had discussed with family member, spouse, at bedside yesterday the need for upper endoscopy. She was agreeable to the procedure at that time, however I tried to call her this AM for official consent, but the number was wrong ([facility]). With the use of a screen printing machine operator helper (nurse), patient was alert and oriented to self, location and situation. We were able to obtain consent and signature from patient. He was able to fully communicate and describe the nature of the procedure, EGD, and give the reason for why it must be done. Case discussed with charge nurse.
[2017-11-14] MEDS ORDERED: Vancomycin 1gm in NS 250ml 1 GM/250 ML BAG IVPB SCH (08:22)
[2017-11-14] MEDS: Vancomycin 1gm in NS 250ml 1 GM/250 ML BAG IVPB SCH ×2 (09:14→21:25)
[2017-11-14] MEDS: Multivitamin Therapeutic Tab PO SCH (10:00)
--- NOTE | 2017-11-14 10:41 | CP.PCM.PN ---
Subjective - Date & Time of Evaluation Date of Evaluation: 11/14/17 Time of Evaluation: 10:00 - Subjective Subjective: Patient seen in OR. Elective case of I and D in OR has delayed our emergent case. Patient still with melena overnight. Recd 2 units PRBC but platelets were cancelled by PMD. I called blood bank this morning and asked them to release platelets STAT. Patient is tachycardic but otherwise alert and afebrile Objective - Vital Signs/Intake and Output Vital Signs (last 24 hours): Temp Pulse Resp BP Pulse Ox 98.6 F 96 H 19 158/72 H 98 11/14/17 06:00 11/14/17 06:00 11/14/17 06:00 11/14/17 06:00 11/14/17 06:00 Intake and Output: 11/14/17 11/14/17 06:59 18:59 Intake Total 1890 Output Total 600 Balance 1290 - Medications Medications: Current Medications Ascorbic Acid (Vitamin C 500 Mg Tab) 500 mg PO BID [facility] Last Admin: 11/13/17 17:00 Dose: Not Given Atorvastatin Calcium (Lipitor) 10 mg PO DAILY [facility] Donepezil HCl (Aricept) 10 mg PO DAILY [facility] Pantoprazole Sodium (Protonix 40mg Ivpb) 40 mg in 100 mls @ 20 mls/hr IVPB .Q5H [facility] Last Admin: 11/14/17 09:14 Dose: 20 mls/hr Sodium Chloride (Sodium Chloride 0.9%) 1,000 mls @ 75 mls/hr IV .[id number] [facility] Last Admin: 11/13/17 14:45 Dose: 75 mls/hr Meropenem (Merrem Iv 1 Gm Premix) 50 mls @ 100 mls/hr IVPB Q8 [facility] PRN Reason: Protocol Stop: 11/22/17 18:59 Last Admin: 11/14/17 05:53 Dose: 100 mls/hr Vancomycin HCl (Vancomycin 1gm) 1 gm in 250 mls @ 167 mls/hr IVPB Q12H [facility] PRN Reason: Protocol Stop: 11/22/17 10:01 Last Admin: 11/14/17 09:14 Dose: 167 mls/hr Insulin Human Regular (Humulin R Med) 0 units SC ACHS [facility] PRN Reason: Protocol Last Admin: 11/14/17 07:30 Dose: Not Given Methimazole (Tapazole) 10 mg PO BID [facility] Last Admin: 11/13/17 17:00 Dose: Not Given Multivitamins (Thera Tab) 1 tab PO DAILY [facility] - Labs Labs: 11/14/17 06:15 11/14/17 06:15 PT 13.1 SECONDS (9.4-12.5) H 11/13/17 14:10 INR 1.15 11/13/17 14:10 APTT 27.0 Seconds (25.1-36.5) 11/13/17 14:10 - Constitutional Appears: Well, Non-toxic, No Acute Distress - Head Exam Head Exam: ATRAUMATIC, NORMAL INSPECTION, NORMOCEPHALIC - Eye Exam Eye Exam: Normal appearance Pupil Exam: PERRL - ENT Exam ENT Exam: Mucous Membranes Moist, Normal Oropharynx - Neck Exam Neck Exam: Full ROM - Respiratory Exam Respiratory Exam: Clear to Ausculation Bilateral, NORMAL BREATHING PATTERN - Cardiovascular Exam Cardiovascular Exam: REGULAR RHYTHM, RRR, +S1, +S2 - GI/Abdominal Exam GI & Abdominal Exam: Distended, Soft, Normal Bowel Sounds Additional comments: No guarding or tenderness - Rectal Exam Rectal Exam: Black Stool - Extremities Exam Extremities Exam: Full ROM, Normal Inspection - Neurological Exam Neurological Exam: Alert, Awake, Oriented x3 - Psychiatric Exam Psychiatric exam: Normal Affect, Normal Mood - Skin Skin Exam: Dry, Intact Assessment and Plan - Assessment and Plan (Free Text) Assessment: 81 yr old M on ticagrellor and ASA at [place] admitted yesterday with melena and symptomatic anemia. Recd 2 units PRBC. Platelets were cancelled and he will receive platelets this morning. I spoke to blood bank to release platelets STAT. He is on PPI gtt. Awaiting availability of anesthesia for EGD. Hemodynamically stable. Discussed with PMD
[2017-11-14] MEDS ORDERED: Propofol 10 mg/ml Inj (20 ML) ONE (11:31)
[2017-11-14] MEDS ORDERED: Etomidate 20 mg/10ml Inj IV ONE (11:32)
[2017-11-14] MEDS ORDERED: Midazolam 2 MG/2 ML VIAL ONE ×2 (11:32→11:49)
[2017-11-14] MEDS ORDERED: Sodium Chloride 0.9% 1,000 ML IV SCH (12:45)
--- NOTE | 2017-11-14 13:51 | PN ---
DATE: 11/14/2017 SUBJECTIVE: I saw him down in preparation for an endoscopy today. Waiting for platelets before he can have the endoscopy with GI because he was on Brilinta. He is comfortable. No acute problems. He is alert. I have spoken to him with a shank taper. He is smiling, doing well. He is on IV antibiotics for his persistent osteo of the right heel. He also had GI bleed. There was melena. No bright red blood, but was symptomatic with hypotension in the [facility] that is why brought him over here. Since he has been in the emergency room, his blood pressure has been stable. He was transfused. He is smiling, comfortable in bed. No more lightheadedness. PHYSICAL EXAMINATION: VITAL SIGNS: He has a 98.9 temp, 93 pulse, 148/72 blood pressure, 18 respiratory rate, 98% O2 sat on room air. HEENT: His head is atraumatic, normocephalic. HEART: Regular rate. LUNGS: Decreased breath sounds, but clear. ABDOMEN: Soft. EXTREMITIES: No edema. MEDICATIONS: He is currently on Aricept, insulin coverage, Lipitor, Merrem IV, Protonix IV, IV fluids, Tapazole, Thera-Tabs, vancomycin IV and vitamin C. LABORATORY DATA: He has a 6.7 white count, 9.4 hemoglobin , 28.2 hematocrit with 431 platelets. He has 141 sodium; potassium 4.4; BUN 29; creatinine 0.9, better; GFR is greater than 60; last blood sugar is 195; calcium is 8.5; total bili is 0.9; AST is 18; ALT is 24; alk phos 76; total protein 6.1; albumin is 3. Urine is clear. ASSESSMENT AND PLAN: He is being seen by Infectious Disease and by GI. Hopefully, we can do the endoscopy today. Only get the platelets. I discussed with the tube coverer and the Infectious Disease doctor. We will check his labs tomorrow. He is clinically stable at this time. He is here for hypotension, gastrointestinal bleed, chronic osteo, on IV antibiotics. Samuel Nix DO [facility] # [id number] ALONSO
[2017-11-14 14:24] LABS: HEMOGLOBIN 8.3 g/dL (14.0-18.0); MEAN CELL VOLUME 80.5 fl (80.0-105.0); MEAN CORPUSCULAR HEMOGLOBIN 27.4 pg (25.0-35.0); MEAN PLATELET VOLUME 8.3 fl (7.0-11.0); RBC 3.03 10^6/uL (3.5-6.1); RED CELL DISTRIBUTION WIDTH 15.2 % (11.5-14.5); WHITE BLOOD COUNT 6.7 10^3/ul (4.5-11.0)
[2017-11-14] MEDS: Sodium Chloride 0.9% 1,000 ML IV SCH ×2 (17:15→18:44)
--- NOTE | 2017-11-14 20:02 | CON ---
DATE: 11/14/2017 LOCATION: Patient is seen earlier today in room 266, bed 2. CHIEF COMPLAINT: Patient was admitted with an elevated blood sugar and low blood pressure x 1 hour at the [facility]. HISTORY OF PRESENT ILLNESS: This is an 81-year-old male [facility] patient with hyperthyroidism, hyperlipidemia, diabetes, hypertension, who has a right osteomyelitis of the right heel, has a PICC line in the right arm with GERD, peripheral vascular disease and Alzheimer's who was admitted because at the [facility], patient was found to have hypotensive and elevated blood sugar. Infectious Disease consultation requested for antibiotic continuation for the heel. REVIEW OF SYSTEMS: Reveals a 12-point review of systems is performed. Patient denies any fevers, any chills. No chest pain, shortness of breath or cough. No abdominal pain, diarrhea or constipation. No bright blood per rectum. No dysuria or frequency. No headaches or blurred vision. PAST MEDICAL HISTORY: Significant for diabetes, hypertension, hyperthyroidism, gastritis, hyperlipidemia, right heel osteomyelitis, GERD, peripheral vascular disease, Alzheimer's. PAST SURGICAL HISTORY: Significant for the recent right upper extremity arm PICC line placement. ALLERGIES: THE PATIENT HAS NO KNOWN ALLERGIES. MEDICATIONS AT THE SNF: I am unable to find what antibiotic the patient was receiving at the [facility]. The patient does not know what antibiotics he was receiving and unable to find the microbiology of the heel. PHYSICAL EXAMINATION: GENERAL: The patient is in bed, answering questions appropriately. VITAL SIGNS: Temperature of 98, T-max was 99; heart rate of 96, it was up to 109; blood pressure here at 120/50, it was low as 109 in the hospital; however it was lower at the [facility]; respiratory rate of 20 with saturation of 98% on room air. HEENT: Unremarkable. NECK: Supple. LUNGS: Have decreased breath sounds. HEART: Normal S1, S2. ABDOMEN: Soft, nontender. No organomegaly. No rebound. No guarding. No masses. EXTREMITIES: Examination of the right heel reveals an open ulcer, it appears to be clean, no discharge. The lateral part of the ankle has also an ulcer, also appears to be clean. LABORATORY EXAMINATION: Reveals a white count of 8.4, hemoglobin of 7, platelets of 530. Coagulation reveals the BUN of 36, creatinine of 1. Random glucose is 244. LFTs are normal. Urinalysis is unremarkable. Leukocyte esterase is negative. ASSESSMENT AND PLAN: This is an 81-year-old [facility] male with diabetes, hypertension, hyperlipidemia with a right heel osteomyelitis with a right arm PICC line, receiving intravenous antibiotics, unknown which antibiotic at the [facility], had hypotension, elevated blood sugar, melena and a drop in the hemoglobin. #1 is acute blood loss anemia secondary to gastrointestinal bleed, must rule out sepsis, must rule out bacteremia secondary to the PICC line and the patient with a right heel osteomyelitis. It is unclear what antibiotic, what organism and duration of the treatment at this time. However, we will start the patient empirically on vancomycin and meropenem. Pending blood cultures, urine culture and we will check on the sed rate and C-reactive protein. We will ask Dr. Nix to obtain records what antibiotic patient was receiving at the [facility]. We will also order a procalcitonin. Reviewed the chest x-ray. We will make further recommendations upon the availability of nieto cultures and empiric vancomycin, meropenem therapy. Of concern is bacteremia from the PICC line. We are awaiting blood cultures. The patient is for endoscopy to determine the source of the gastrointestinal bleed. We will follow closely with you. Paresh Bailon MD
[2017-11-14 20:25] LABS: HEMOGLOBIN 8.9 g/dL (14.0-18.0); MEAN CELL VOLUME 81.1 fl (80.0-105.0); MEAN CORPUSCULAR HEMOGLOBIN 27.6 pg (25.0-35.0); MEAN CORPUSCULAR HGB CONC 34.1 g/dl (31.0-37.0); MEAN PLATELET VOLUME 8.1 fl (7.0-11.0); RBC 3.22 10^6/uL (3.5-6.1); RED CELL DISTRIBUTION WIDTH 15.1 % (11.5-14.5); WHITE BLOOD COUNT 7.1 10^3/ul (4.5-11.0)
[2017-11-15] MEDS: Pantoprazole 40mg/100mL NS 40 MG/100 ML BAG IVPB SCH ×2 (01:50→06:33)
[2017-11-15 06:30] LABS: HEMOGLOBIN 8.5 g/dL (14.0-18.0); MEAN CORPUSCULAR HGB CONC 33.3 g/dl (31.0-37.0); MEAN PLATELET VOLUME 8.5 fl (7.0-11.0); RBC 3.15 10^6/uL (3.5-6.1); RED CELL DISTRIBUTION WIDTH 15.2 % (11.5-14.5); WHITE BLOOD COUNT 7.4 10^3/ul (4.5-11.0)
[2017-11-15] MEDS: Meropenem IV 1 gm in NS 50 ML IVPB SCH ×3 (06:33→22:50)
[2017-11-15 06:44] LABS: ALT/SGPT 23 U/L (7-56); AST/SGOT 14 U/L (17-59); BLOOD UREA NITROGEN 14 mg/dL (7-21); CALCIUM 8.4 mg/dL (8.4-10.5); GFR NON-AFRICAN AMERICAN > 60
[2017-11-15 07:40] VITALS: O2SAT 100
[2017-11-15] MEDS: Insulin Reg-MEDIUM-Coverage SC SCH ×4 (08:10→22:49)
--- NOTE | 2017-11-15 08:42 | CP.PCM.PN ---
<Amor James - Last Filed: 11/15/17 10:59> Subjective - Date & Time of Evaluation Date of Evaluation: 11/15/17 Time of Evaluation: 08:35 - Subjective Subjective: GI Fellow PGY4, Patient is doing well, tolerating CLD. No complaints. No acute overnight events. No reports on BMs, but apparently had two yesterday. I asked to nurse to place note of BM color today. Objective - Vital Signs/Intake and Output Vital Signs (last 24 hours): Temp Pulse Resp BP Pulse Ox 98.6 F 80 18 144/67 100 11/15/17 06:00 11/15/17 06:00 11/15/17 06:00 11/15/17 06:00 11/15/17 06:00 Intake and Output: 11/15/17 11/15/17 06:59 18:59 Intake Total 800 1200 Output Total 1500 Balance -700 1200 - Medications Medications: Current Medications Ascorbic Acid (Vitamin C 500 Mg Tab) 500 mg PO BID [facility] Last Admin: 11/14/17 18:29 Dose: Not Given Atorvastatin Calcium (Lipitor) 10 mg PO DAILY [facility] Last Admin: 11/14/17 10:00 Dose: Not Given Donepezil HCl (Aricept) 10 mg PO DAILY [facility] Last Admin: 11/14/17 10:00 Dose: Not Given Pantoprazole Sodium (Protonix 40mg Ivpb) 40 mg in 100 mls @ 20 mls/hr IVPB .Q5H [facility] Last Admin: 11/15/17 06:33 Dose: 20 mls/hr Meropenem (Merrem Iv 1 Gm Premix) 50 mls @ 100 mls/hr IVPB Q8 [facility] PRN Reason: Protocol Stop: 11/22/17 18:59 Last Admin: 11/15/17 06:33 Dose: 100 mls/hr Vancomycin HCl (Vancomycin 1gm) 1 gm in 250 mls @ 167 mls/hr IVPB Q12H [facility] PRN Reason: Protocol Stop: 11/22/17 10:01 Last Admin: 11/14/17 21:25 Dose: 167 mls/hr Sodium Chloride (Sodium Chloride 0.9%) 1,000 mls @ 100 mls/hr IV .Q10H [facility] Last Admin: 11/14/17 13:22 Dose: Not Given Insulin Human Regular (Humulin R Med) 0 units SC ACHS [facility] PRN Reason: Protocol Last Admin: 11/15/17 08:10 Dose: 1 units Methimazole (Tapazole) 10 mg PO BID [facility] Last Admin: 11/14/17 18:28 Dose: Not Given Multivitamins (Thera Tab) 1 tab PO DAILY [facility] Last Admin: 11/14/17 10:00 Dose: Not Given - Labs Labs: 11/15/17 06:00 11/15/17 06:00 PT 13.1 SECONDS (9.4-12.5) H 11/13/17 14:10 INR 1.15 11/13/17 14:10 APTT 27.0 Seconds (25.1-36.5) 11/13/17 14:10 - Constitutional Appears: Non-toxic, No Acute Distress, Chronically Ill - Head Exam Head Exam: NORMAL INSPECTION - Eye Exam Eye Exam: EOMI, Normal appearance - ENT Exam ENT Exam: Mucous Membranes Moist - Respiratory Exam Respiratory Exam: Clear to Ausculation Bilateral, NORMAL BREATHING PATTERN - Cardiovascular Exam Cardiovascular Exam: REGULAR RHYTHM, +S1, +S2 - GI/Abdominal Exam GI & Abdominal Exam: Soft, Normal Bowel Sounds. absent: Tenderness - Extremities Exam Extremities Exam: Normal Inspection - Neurological Exam Neurological Exam: Alert, Awake, Oriented x3 - Psychiatric Exam Psychiatric exam: Normal Affect, Normal Mood - Skin Skin Exam: Dry, Normal Color Assessment and Plan - Assessment and Plan (Free Text) Assessment: 81M with unclear medical history on DAPT and ?osteomyelitis presenting with hypotension and melena. #Acute blood loss anemia due to GI bleed - Bleeding gastric AVMs. #Likely PVD #Likely osteomyelitis - had PICC line on presentation, daily Abx. #T2DM #?Hyperthyroidism - on Methimazole PLAN: -EGD 11/14/17 with actively bleeding gastric AVMs s/p successful epi injection and APC. -s/p 2u pRBCs -s/p 1u plts stat for recent DAPT -PPI IV daily -Tolerating CLD, stop IVF. Start FLD. -Avoid NSAIDs, currently holding DAPT... HOWEVER, Unclear reason for DAPT (Pt does not know, ?PVD, no reports of stents, no records). Defer to primary on urgency to restart. -Hb currently stable. Monitor Hb and BMs. <Reyna Cortez - Last Filed: 11/15/17 11:41> Objective - Vital Signs/Intake and Output Vital Signs (last 24 hours): Temp Pulse Resp BP Pulse Ox 98.6 F 80 18 144/67 100 11/15/17 06:00 11/15/17 06:00 11/15/17 06:00 11/15/17 06:00 11/15/17 06:00 Intake and Output: 11/15/17 11/15/17 06:59 18:59 Intake Total 800 1200 Output Total 1500 Balance -700 1200 - Medications Medications: Current Medications Ascorbic Acid (Vitamin C 500 Mg Tab) 500 mg PO BID [facility] Last Admin: 11/15/17 09:40 Dose: 500 mg Atorvastatin Calcium (Lipitor) 10 mg PO DAILY [facility] Last Admin: 11/15/17 09:40 Dose: 10 mg Donepezil HCl (Aricept) 10 mg PO DAILY [facility] Last Admin: 11/15/17 09:40 Dose: 10 mg Meropenem (Merrem Iv 1 Gm Premix) 50 mls @ 100 mls/hr IVPB Q8 [facility] PRN Reason: Protocol Stop: 11/22/17 18:59 Last Admin: 11/15/17 06:33 Dose: 100 mls/hr Vancomycin HCl (Vancomycin 1gm) 1 gm in 250 mls @ 167 mls/hr IVPB Q12H [facility] PRN Reason: Protocol Stop: 11/22/17 10:01 Last Admin: 11/15/17 09:40 Dose: 167 mls/hr Insulin Human Regular (Humulin R Med) 0 units SC ACHS [facility] PRN Reason: Protocol Last Admin: 11/15/17 08:10 Dose: 1 units Methimazole (Tapazole) 10 mg PO BID [facility] Last Admin: 11/15/17 09:40 Dose: 10 mg Multivitamins (Thera Tab) 1 tab PO DAILY [facility] Last Admin: 11/15/17 09:40 Dose: 1 tab Pantoprazole Sodium (Protonix Inj) 40 mg IVP DAILY [facility] - Labs Labs: 11/15/17 06:00 11/15/17 06:00 PT 13.1 SECONDS (9.4-12.5) H 11/13/17 14:10 INR 1.15 11/13/17 14:10 APTT 27.0 Seconds (25.1-36.5) 11/13/17 14:10 Attending/Attestation - Attestation I have personally seen and examined this patient.: Yes I have fully participated in the care of the patient.: Yes I have reviewed all pertinent clinical information, including history, physical exam and plan: Yes Notes (Text): 11/15/17 11:37 Patient seen at bedside this am. This is a 81M with unclear medical history on DAPT and ?osteomyelitis presenting with hypotension and melena s/p resuscitation and urgent EGD that showed multiple bleeding AVM s/p argon therapy for coagulation. Unclear why patient was on ticgrellor. Will hold the medication for now in setting of acute Gi bleeding. Primary team to reach out to the physician to discuss the need for anti platelet. family unsure when and where it was started. . Advance diet. Change IV PPi to po PPI. Advance diet as tolerated. No further work up required. Will sign off. Thank you for letting us participate in the care of your patient
--- NOTE | 2017-11-15 09:16 | PN ---
DATE: 11/15/2017 SUBJECTIVE: He is resting comfortably in bed. He is telling me about his left hip and left femur area that is very painful. I am going to order an x-ray of that. He had an upper and lower endoscopy with cauterization from the clinical services specialist of bleeding. MEDICATIONS: He is currently on Aricept, insulin, Lipitor, Merrem, Protonix, Tapazole, Thera-Tabs, vancomycin and vitamin C. PHYSICAL EXAMINATION: VITAL SIGNS: He has a 98.6 temp, 79 pulse, 144/67 blood pressure, 18 respiratory rate and 100% O2 sat on room air. HEENT: His head is atraumatic, normocephalic. HEART: Regular rate. LUNGS: Decreased breath sounds, but clear. ABDOMEN: Soft, nontender. Positive bowel sounds. No guarding, no rebound, no CVA tenderness. EXTREMITIES: No edema. LABORATORY DATA: He has a white count of 7.4; hemoglobin dropped to 8.5, he is on IV fluids; 25.5 hematocrit; 433 platelets. If the hemoglobin drops below eight, I will transfuse him. 141 sodium, potassium 4, BUN 40, creatinine 0.8, GFR is greater than 60, sugar is 156, calcium is 8.4, total bili is 0.4, AST is 14, ALT is 23, alk phos 77, total protein is 5.9. ASSESSMENT AND PLAN: The patient is being seen by GI and Infectious Disease. He also has an osteomyelitis of the right heel and he is on IV antibiotics. When I get the okay from GI, he is safe to be transferred back to [facility], I will do that. I will also check an x-ray of his left hip and left femur because he is having a lots of pain. Samuel Nix DO
[2017-11-15] MEDS: Multivitamin Therapeutic Tab PO SCH (09:40)
[2017-11-15] MEDS: Vancomycin 1gm in NS 250ml 1 GM/250 ML BAG IVPB SCH ×2 (09:40→22:50)
--- NOTE | 2017-11-15 12:40 | CP.PCM.PN ---
Subjective - Date & Time of Evaluation Date of Evaluation: 11/15/17 Time of Evaluation: 10:30 - Subjective Subjective: Patient is comfortable while being cleaned, no fevers, not in distress. Objective - Vital Signs/Intake and Output Vital Signs (last 24 hours): Temp Pulse Resp BP Pulse Ox 98.6 F 80 18 144/67 100 11/15/17 06:00 11/15/17 06:00 11/15/17 06:00 11/15/17 06:00 11/15/17 06:00 Intake and Output: 11/15/17 11/15/17 06:59 18:59 Intake Total 800 1200 Output Total 1500 Balance -700 1200 - Medications Medications: Current Medications Ascorbic Acid (Vitamin C 500 Mg Tab) 500 mg PO BID [facility] Last Admin: 11/15/17 09:40 Dose: 500 mg Atorvastatin Calcium (Lipitor) 10 mg PO DAILY [facility] Last Admin: 11/15/17 09:40 Dose: 10 mg Donepezil HCl (Aricept) 10 mg PO DAILY [facility] Last Admin: 11/15/17 09:40 Dose: 10 mg Meropenem (Merrem Iv 1 Gm Premix) 50 mls @ 100 mls/hr IVPB Q8 [facility] PRN Reason: Protocol Stop: 11/22/17 18:59 Last Admin: 11/15/17 06:33 Dose: 100 mls/hr Vancomycin HCl (Vancomycin 1gm) 1 gm in 250 mls @ 167 mls/hr IVPB Q12H [facility] PRN Reason: Protocol Stop: 11/22/17 10:01 Last Admin: 11/15/17 09:40 Dose: 167 mls/hr Insulin Human Regular (Humulin R Med) 0 units SC ACHS [facility] PRN Reason: Protocol Last Admin: 11/15/17 08:10 Dose: 1 units Methimazole (Tapazole) 10 mg PO BID [facility] Last Admin: 11/15/17 09:40 Dose: 10 mg Multivitamins (Thera Tab) 1 tab PO DAILY [facility] Last Admin: 11/15/17 09:40 Dose: 1 tab Pantoprazole Sodium (Protonix Inj) 40 mg IVP DAILY [facility] - Labs Labs: 11/15/17 06:00 11/15/17 06:00 PT 13.1 SECONDS (9.4-12.5) H 11/13/17 14:10 INR 1.15 11/13/17 14:10 APTT 27.0 Seconds (25.1-36.5) 11/13/17 14:10 - Constitutional Appears: Chronically Ill - Head Exam Head Exam: NORMAL INSPECTION - Neck Exam Neck Exam: absent: Meningismus - Respiratory Exam Respiratory Exam: Decreased Breath Sounds - Cardiovascular Exam Cardiovascular Exam: +S1, +S2 - GI/Abdominal Exam GI & Abdominal Exam: Soft. absent: Tenderness Assessment and Plan - Assessment and Plan (Free Text) Plan: Assessment right heel osteomyelitis, R/O sepsis from PICC line-related bacteremia acute blood loss anemia due to AVM's seen on EGD dyslipidemia hyperthyroidism DM HTN GERD peripheral arterial disease dementia Plan Continue Vancomycin and Merrem pending final blood cx results (so far negative x 1 day) will check if there were cultures in relation to his right heel osteomyelitis and how long the patient has been on antibiotics
--- NOTE | 2017-11-15 12:47 | RAD ---
PROCEDURE: Pelvis and left hip. HISTORY: Pain COMPARISON: Correlation made with concurrent radiographs of the left femur. FINDINGS: BONES: No evidence of acute displaced fracture nor dislocation. JOINTS: Mild degenerative both hip joints. SOFT TISSUES: Mild vascular calcifications. No evidence of subcutaneous emphysema. OTHER FINDINGS: Mild degenerative spondylosis lumbosacral spine. IMPRESSION: No evidence of acute displaced fracture nor dislocation. Mild degenerative changes both hip joints.
--- NOTE | 2017-11-15 12:48 | RAD ---
Date of service: 11/15/2017 PROCEDURE: Left Femur Radiographs. HISTORY: pain COMPARISON: Correlation made with concurrent radiographs left hip TECHNIQUE: AP and Lateral Radiographs of the left femur. FINDINGS: FEMUR: No evidence of acute displaced fracture nor dislocation. The osseous structures appear intact. SOFT TISSUES: Vascular calcifications are present. No subcutaneous emphysema OTHER FINDINGS: None. IMPRESSION: No evidence of acute displaced
--- NOTE | 2017-11-15 16:54 | CON ---
DATE: 11/15/2017 CARDIOLOGY CONSULTATION HISTORY: The patient is an 81-year-old male, who presented with osteomyelitis of the lower extremities. The patient's past medical history is notable for history of diabetes mellitus, hypercholesterolemia and peripheral vascular disease. The patient has apparently had the procedures done of his lower extremities by his doctor, Dr. Lizett Harrison at [facility]. He was sent home on Brilinta with no documented cardiac procedures. The patient is unable to give a history. The family is unable to give a history. REVIEW OF SYSTEMS: Reviewed. No cardiac symptoms are noted. PHYSICAL EXAMINATION: VITAL SIGNS: Blood pressure is 144/67, heart rate is in the 80s. NECK: Negative JVD. LUNGS: Without rales. HEART: Reveals S1 and S2. EXTREMITIES: There are bandage on lower extremities. EKG shows no acute changes. LABORATORY DATA: Hemoglobin is 8.5, glucose is 176. BUN and creatinine are unremarkable. IMPRESSION: 1. Severe peripheral vascular disease. 2. Osteomyelitis of the lower extremities. 3. Diabetes mellitus. 4. Unclear why the patient is on Brilinta given that there is no documented history of a cardiac procedure. PLAN: Given these findings, I have discussed with GI. I have requested that the GI fellow get his medical records from the route rider supervisor who is caring for him and from [facility]. At this time, if it is necessary to do procedures, we will hold off on Brilinta for now. Gene Garcia MD
--- NOTE | 2017-11-15 17:59 | US ---
PROCEDURE: Lower extremity GILBERTO exam HISTORY: Peripheral vascular disease with pain and ulceration. PHYSICIAN(S): Gene Bianchi MD. FINDINGS: The resting GILBERTO's are likely inaccurate due to distal calcification: Right, 0.99 and left, 1.15 The brachial systolic pressures are symmetric. The segmental pressures and PVR waveforms are normal to the calf. The ankle and metatarsal waveforms are moderately to severely blunted bilaterally, greater on the left than the right. This is consistent with bilateral tibial disease. IMPRESSION: 1. Inaccurate resting ABIs 2. Bilateral tibial disease, greater on the left than the right
[2017-11-16 02:12] VITALS: TEMP 98.3
[2017-11-16] MEDS: Meropenem IV 1 gm in NS 50 ML IVPB SCH (06:30)
[2017-11-16 07:15] LABS: HEMOGLOBIN 8.6 g/dL (14.0-18.0); MEAN CORPUSCULAR HEMOGLOBIN 27.2 pg (25.0-35.0); MEAN CORPUSCULAR HGB CONC 33.6 g/dl (31.0-37.0); MEAN PLATELET VOLUME 8.3 fl (7.0-11.0); RBC 3.16 10^6/uL (3.5-6.1); RED CELL DISTRIBUTION WIDTH 14.9 % (11.5-14.5); WHITE BLOOD COUNT 6.6 10^3/ul (4.5-11.0)
[2017-11-16 07:33] LABS: ALBUMIN 3.1 g/dL (3.0-4.8); ALT/SGPT 25 U/L (7-56); AST/SGOT 24 U/L (17-59); BLOOD UREA NITROGEN 10 mg/dL (7-21); CALCIUM 8.6 mg/dL (8.4-10.5); GFR NON-AFRICAN AMERICAN > 60
[2017-11-16] MEDS: Insulin Reg-MEDIUM-Coverage SC SCH ×3 (08:19→17:19)
--- NOTE | 2017-11-16 10:10 | PN ---
DATE: 11/16/2017 SUBJECTIVE: Jason resting comfortably in bed. He is doing much better than yesterday. He is in good spirits. He has no complaints this morning. He slept well. OBJECTIVE: VITAL SIGNS: He has a 98.3 temperature, 77 pulse, 136/76 blood pressure, 20 respiratory rate. HEENT: Head is atraumatic, normocephalic. HEART: Regular rate. LUNGS: Clear to auscultation bilaterally. He is in good spirits. ABDOMEN: Soft, nontender. Positive bowel sounds. EXTREMITIES: No edema. He is currently on Lipitor, Aricept, insulin coverage, Merrem IV, Protonix, Tapazole, Thera-Tabs, vancomycin and vitamin C. He has a urine that is clean. Chemistry shows 138 sodium, potassium 3.9, BUN 10, creatinine 0.8. GFR is greater than 60. Sugar is 176, calcium is 8.6. AST is 24, ALT is 25, alk phos 85, total protein 6.2. White count 6.6, hemoglobin of 8.6, 25.6 hematocrit, 437 platelets. If it is okay with GI, I would like to discharge him back to [facility] for further IV antibiotics to finish up his IV antibiotics for his osteomyelitis of the right heel. This is a patient who had GI bleed. Samuel Nix DO
--- NOTE | 2017-11-16 11:05 | PN ---
DATE: 11/16/2017 CARDIOLOGY FOLLOWUP SUBJECTIVE: The patient is asymptomatic. No shortness of breath. No chest pain. PHYSICAL EXAMINATION: VITAL SIGNS: Stable. NECK: Negative JVD. LUNGS: Without rales. HEART: Reveals S1, S2. EXTREMITIES: Without edema. LABORATORY DATA: Hemoglobin is 8.6. Chemistries: BUN and creatinine are unremarkable. Glucose is 176. IMPRESSION: 1. Peripheral vascular disease. 2. Osteomyelitis of lower extremity. 3. Diabetes mellitus. 4. No evidence for active cardiac issues and no history of acute myocardial infarction and no record in [facility] of percutaneous transluminal coronary angioplasty. PLAN: Given these findings, I would discontinue his Brilinta. We will discontinue telemetry today. Gene Garcia MD
[2017-11-16] MEDS ORDERED: Piperacillin/Tazobact 3.375 gm 100 ML IVPB SCH (12:15)
[2017-11-16 12:18] VITALS: BP 136/68; RESP 18
[2017-11-16 15:36] VITALS: PULSE 98
--- NOTE | 2017-11-16 18:32 | CP.PCM.PN ---
Subjective - Date & Time of Evaluation Date of Evaluation: 11/16/17 Time of Evaluation: 09:35 - Subjective Subjective: No fevers, not in distress. Objective - Vital Signs/Intake and Output Vital Signs (last 24 hours): Temp Pulse Resp BP Pulse Ox 98.3 F 77 20 136/76 100 11/16/17 00:01 11/16/17 02:00 11/16/17 00:01 11/16/17 00:01 11/15/17 06:00 Intake and Output: 11/15/17 11/16/17 18:59 06:59 Intake Total 2680 Balance 2680 - Medications Medications: Current Medications Ascorbic Acid (Vitamin C 500 Mg Tab) 500 mg PO BID [facility] Last Admin: 11/15/17 17:39 Dose: 500 mg Atorvastatin Calcium (Lipitor) 10 mg PO DAILY [facility] Last Admin: 11/15/17 09:40 Dose: 10 mg Donepezil HCl (Aricept) 10 mg PO DAILY [facility] Last Admin: 11/15/17 09:40 Dose: 10 mg Meropenem (Merrem Iv 1 Gm Premix) 50 mls @ 100 mls/hr IVPB Q8 [facility]; Protocol Stop: 11/22/17 18:59 Last Admin: 11/15/17 22:50 Dose: 100 mls/hr Vancomycin HCl (Vancomycin 1gm) 1 gm in 250 mls @ 167 mls/hr IVPB Q12H [facility]; Protocol Stop: 11/22/17 10:01 Last Admin: 11/15/17 22:50 Dose: 167 mls/hr Insulin Human Regular (Humulin R Med) 0 units SC ACHS [facility]; Protocol Last Admin: 11/15/17 22:49 Dose: Not Given Methimazole (Tapazole) 10 mg PO BID [facility] Last Admin: 11/15/17 17:38 Dose: 10 mg Multivitamins (Thera Tab) 1 tab PO DAILY [facility] Last Admin: 11/15/17 09:40 Dose: 1 tab Pantoprazole Sodium (Protonix Inj) 40 mg IVP DAILY [facility] Last Admin: 11/15/17 17:39 Dose: 40 mg - Labs Labs: 11/15/17 06:00 11/15/17 06:00 PT 13.1 SECONDS (9.4-12.5) H 11/13/17 14:10 INR 1.15 11/13/17 14:10 APTT 27.0 Seconds (25.1-36.5) 11/13/17 14:10 - Constitutional Appears: Chronically Ill - Head Exam Head Exam: NORMAL INSPECTION - Respiratory Exam Respiratory Exam: Decreased Breath Sounds - Cardiovascular Exam Cardiovascular Exam: +S1, +S2 - GI/Abdominal Exam GI & Abdominal Exam: Soft. absent: Tenderness Assessment and Plan - Assessment and Plan (Free Text) Plan: Assessment right heel osteomyelitis - no evidence of sepsis - no bacteremia present acute blood loss anemia due to AVM's seen on EGD dyslipidemia hyperthyroidism DM HTN GERD peripheral arterial disease dementia Plan on Vancomycin and Merrem; blood cx negative patient was on Zosyn prior to this admission and can be switched back to it on discharge to complete the therapy (4-6 weeks total antibiotics and will need weekly CRP, CBC, CMP) - discussed this with Elin Mitchell, nurse practitioner
== END 2017-11-16 18:23 | DRG 378 ==
LOC: ED 10:41 → ERH 12:58 → 2RNO 14:01
PROVIDERS: ADMIT Family Medicine; ATTEND Family Medicine
PROC: 30233N1 Transfusion of Nonautologous Red Blood Cells into Peripheral Vein, Percutaneous Approach (ICD-10-PCS; 2017-11-13)
PROC: 6A550Z1 Pheresis of Leukocytes, Single (ICD-10-PCS; 2017-11-14)
PROC: 0W3P8ZZ Control Bleeding in Gastrointestinal Tract, Via Natural or Artificial Opening Endoscopic (ICD-10-PCS; principal; 2017-11-14 09:00)
DX: K31.811 Angiodysplasia of stomach and duodenum with bleeding (principal); D62 Acute posthemorrhagic anemia; M86.9 Osteomyelitis, unspecified; L97.419 Non-pressure chronic ulcer of right heel and midfoot with unspecified severity; E03.9 Hypothyroidism, unspecified; E05.90 Thyrotoxicosis, unspecified without thyrotoxic crisis or storm; E11.51 Type 2 diabetes mellitus with diabetic peripheral angiopathy without gangrene; E11.65 Type 2 diabetes mellitus with hyperglycemia; E11.69 Type 2 diabetes mellitus with other specified complication; E78.00 Pure hypercholesterolemia, unspecified; E78.5 Hyperlipidemia, unspecified; E86.0 Dehydration; F02.80 Dementia in other diseases classified elsewhere, unspecified severity, without behavioral disturbance, psychotic disturbance, mood disturbance, and anxiety; G30.9 Alzheimer's disease, unspecified; I10 Essential (primary) hypertension; K21.9 Gastro-esophageal reflux disease without esophagitis; K31.819 Angiodysplasia of stomach and duodenum without bleeding; Z79.82 Long term (current) use of aspirin; Z95.5 Presence of coronary angioplasty implant and graft; E11.621 Type 2 diabetes mellitus with foot ulcer